=== PATIENT | female | born 1980 | race Caucasian/White ===

== ENCOUNTER → 2021-04-01 10:47 | Outpatient (BNVA) | payer MEDICAID, OTHER, SELFPAY | PROVIDERS: PCP Family Medicine; Visit Provider Surgery | DX: Z20.822 Contact with and (suspected) exposure to COVID-19 (principal); Z11.52 Encounter for screening for COVID-19 | CPT/HCPCS: 87635 ==

== ENCOUNTER 2021-04-07 07:55 | Day surgery (SDC) | payer MEDICAID, SELFPAY ==
[2021-04-04 12:36] VITALS: BMI 36.6
[2021-04-07] VITALS (7 sets, daily range): BP systolic 138–159; BP diastolic 80–107; PULSE 72–107; RESP 16–19; TEMP 36.2–36.4; O2SAT 96–100
--- NOTE | 2021-04-07 08:05 | W.PM.OPSUD ---
Surgery/Procedure H&P Update DATE OF PROCEDURE: April 07, 2021 DATE H&P PERFORMED: 04/01/21 H&P UPDATE INFORMATION: I have reviewed H&P completed within last 30 days, I have examined patient prior to procedure and No changes to prior documentation PLANNED PROCEDURE: Operation Date: 04/07/21 09:30 Proposed Procedures p Laparoscopic Cholecystectomy 47935 K80.20(Not Applicable) - Vitaliy Umana MD
[2021-04-07] MEDS: sodium chloride 0.9% 1,000 ML 30 ML IV (08:30)
--- NOTE | 2021-04-07 08:59 | P.ANESASSM_ITS ---
Pre-Anesthetic Assessment Pre-Anesthetic Assessment: Height/Weight: Height 1.57 m Weight 90.718 kg Temp Pulse Resp BP Pulse Ox 97.2 F L 86 18 159/107 98 04/07/21 08:25 04/07/21 08:25 04/07/21 08:25 04/07/21 08:25 04/07/21 08:25 Preop Diagnosis: Cholelithiasis Proposed Procedure: Operation Date: 04/07/21 09:30 Proposed Procedures p Laparoscopic Cholecystectomy 69505 K80.20(Not Applicable) - Vitaliy Umana MD Was Beta Georgette taken within 24 hours: N/A Was Clonidine taken within 24 hours: N/A Last intake: Intake Last Liquid Date 04/06/21 Last Liquid Time 21:00 Last Solid Date 04/06/21 Last Solid Time 21:00 Social: Social History: No alcohol and No tobacco Exam: Pre-Anes Outpt Exam: alert, oriented x 3, clear to auscultation bilate rally and regular rate & rhythm Airway: Submandibular: WNL Cervical ROM: WNL MP: 2 Dentition: Full History/ROS: No significant history except as noted and No significant complaints Pulmonary: Pulmonary: None reported CV/HEM: CV/HEM: None reported : : None reported Hepatic: Hepatic: None reported GI: GI: GERD Comments: currently nauseated Metabolic: Metabolic: Thyroid Musc/skel: Musc/skel: None reported Neuropsych: Neuropsych: Anxiety and Depression Anesthetic Plan: ASA status: 3 Anesthesia: Anesthesia Evaluation and General PFSH Anesthesia PFSH: Medical History (Updated 04/01/21 @ 10:35 by Vitaliy Umana MD) Depression Hypothyroidism Surgical History (Updated 04/01/21 @ 10:34 by Vitaliy Umana MD) History of History of ear surgery History of ovarian cystectomy Social History Smoking and tobacco status: never smoked Female Reproductive History: Date of last menstrual period: 04/28/21 Data Anesthesia Cardiac Studies: No Data to Display
[2021-04-07 09:04] LABS: OR HCG Qualitative Urine Negative (Negative)
--- NOTE | 2021-04-07 10:18 | SUR.PHASEI ---
PT AWAKE ALERT TAKING OCC ICE CHIPS ABD SOFT WITH 4 SITES D/I PT ON RA TRIAL.
[2021-04-07] MEDS: HYDROcodone-acetaminophen 5-325 mg Tablet 1 TAB PO (11:34)
--- NOTE | 2021-04-07 14:02 | P.OP_ITS ---
Operative Report Date of procedure: April 07, 2021 Pre-op Diagnosis: Cholelithiasis Post-op diagnosis: same Procedure Done: Laparoscopic cholecystectomy Specimens removed/disposition: Gallbladder Surgeon: Vitaliy Umana Anesthesia: General Condition: stable Disposition: PACU Procedure: The patient was taken to the operating room and was intubated under general anesthesia. After the antibiotic had been administered, the abdomen was prepped and draped in a sterile manner. Using a #15 blade, a 1 centimeter infraumbilical curvilinear incision was made and using an open Glen technique the peritoneal cavity was entered. A 10 millimeter port was placed and 15 millimeters of pneumoperitoneum was created. A 10 millimeter, 30 degrees scope was then introduced. Three 5 millimeter ports were placed in the epigastric, midclavicular and the anterior axillary line two fingerbreadths below the costal margin on the right side under the direct visualization. Ratcheted forceps were introduced into the lateral most port and was used to retract the fundus of the gallbladder cephalad and using forceps the infundibulum of the gallbladder was retracted laterally. Using L-hook cautery the peritoneum overlying the Calot's triangle was opened medially and laterally until the cystic duct and the anterior and posterior branch of the cystic artery were skeletonized. Dissection was carried along the body of the gallbladder and after ensuring c ritical view of safety, 4 clips applied on the cystic duct and 3 clips applied on the cystic artery and cut leaving, 3 clips on the remaining portion of the duct and 2 clips on the remaining portion of the anterior and posterior branch of the cystic artery. The rest of the gallbladder was dissected off the liver using L-hook cautery. There was no bleeding or bile leakage noted from the gallbladder fossa and the clips appeared to be in place. An EndoCatch bag was introduced to remove the gallbladder. All the ports were removed under direct visualization and there was no bleeding noted from the port sites. The fascia of the umbilicus was closed using [id number] 0 Vicryl sutures and the subcutaneous tissue was approximated using 3-0 Vicryl sutures. The skin at all four ports were closed using 4-0 Monocryl and Dermabond. A total of 10 millimeters of 0.5% Marcaine was infiltrated around the port sites. The patient was stable throughout the procedure, extubated and transferred to recovery room.
--- NOTE | 2021-04-07 14:30 | ANE.PACU2 ---
Inpatient post-anesthesia follow up: Airway intact: Yes Vital signs: Temperature 97.5 F Pulse Rate 78 Respiratory Rate 18 Blood Pressure 144/86 Pulse Oximetry 98 Oxygen Delivery Me thod Room Air Oxygen Flow Rate 6 Fraction of Inspir ed Oxygen Hydration adequate: Yes Nausea and vomiting: No Pain level: 2 Mental status: Baseline
== END 2021-04-07 11:56 | disposition home or self-care (01) ==
PROVIDERS: Anesthesiology; PCP Family Medicine; Visit Provider Surgery
PROC: 0FT44ZZ Resection of Gallbladder, Percutaneous Endoscopic Approach (ICD-10-PCS; CPT 47562; principal; 2021-04-07 09:30)
DX: K80.10 Calculus of gallbladder with chronic cholecystitis without obstruction (principal); F32.9 Major depressive disorder, single episode, unspecified; E03.9 Hypothyroidism, unspecified
CPT/HCPCS: 47562; 81025; 84703; 88304; J0330; J0690; J1100; J1200; J1885; J2250; J2405; J2704; J2710; J3010; J3490; J7030

== ENCOUNTER → 2021-04-28 13:13 | Outpatient (BNVA) | payer MEDICAID, SELFPAY | PROVIDERS: PCP Family Medicine; Visit Provider Podiatrist Foot & Ankle Surgery | DX: M72.2 Plantar fascial fibromatosis (principal) | CPT/HCPCS: 73630 ==

== ENCOUNTER → 2022-02-09 10:07 | Outpatient (BNVA) | payer MEDICAID, SELFPAY | PROVIDERS: PCP Family Medicine; Visit Provider Podiatrist Foot & Ankle Surgery | DX: M72.2 Plantar fascial fibromatosis (principal) | CPT/HCPCS: 73630 ==

== ENCOUNTER 2022-02-18 12:00 | Outpatient (CLI) | payer MEDICAID, SELFPAY | END 2022-02-18 12:01 | disposition home or self-care (01) | LOC: SLEEP 02-19 08:57 | PROVIDERS: PCP Family Medicine; Visit Provider Otolaryngology | DX: G47.33 Obstructive sleep apnea (adult) (pediatric) (principal); J34.3 Hypertrophy of nasal turbinates | CPT/HCPCS: G0399 ==

== ENCOUNTER → 2022-08-31 13:18 | Outpatient (BNVA) | payer MEDICAID, SELFPAY | PROVIDERS: PCP Family Medicine | DX: R30.0 Dysuria (principal) | CPT/HCPCS: 81000 ==

== ENCOUNTER 2022-09-29 15:02 | Outpatient (CLI) | payer MEDICAID, SELFPAY ==
--- NOTE | 2022-09-29 15:56 | US_ITS ---
WS: [id number] US transvaginal [id number] HISTORY: PELVIC PAIN COMPARISON: 09/08/2022 Limited evaluation based upon the patient's body habitus. Uterus: 8.2 cm x 5.4 cm x 4.3 cm. Anteverted uterus. The entire uterus is not well visualized due to body habitus. Coarsened echotextur e throughout the visualized myometrium. Endometrium: 1.0 cm. Poorly visualized secondary to patient's body habitus. Neither ovary is identified. No adnexal mass. No free fluid in the cul-de-sac. US/US transvaginal [id number] IMPRESSION: 1. Limited by patient's body habitus. 2. Neither ovary identified. 3. Poorly visualized uterus and endometrium.
== END 2022-09-29 15:03 | disposition home or self-care (01) ==
LOC: RAD 15:07
PROVIDERS: PCP Family Medicine; Visit Provider Family Medicine
DX: R10.2 Pelvic and perineal pain (principal)
CPT/HCPCS: 76830

== ENCOUNTER 2022-12-10 05:56 | Day surgery (SDC) | payer MEDICAID, SELFPAY ==
[2022-12-09 08:12] VITALS: BMI 38.4
--- NOTE | 2022-12-09 22:22 | P.HP_ITS ---
Same Day Surgery H&P Indication for Procedure/HPI DATE OF PROCEDURE: December 09, 2022 CHIEF COMPLAINT/INDICATIONFOR SURGICAL PROCEDURE: abnormal uterine bleeding PREOP DIAGNOSIS: abnormal uterine bleeding PLANNED PROCEDURE: Operation Date: 12/10/22 07:30 Proposed Procedures p Hysteroscopy Hysteroscopy w/ Endometrial Sampling(Not Applicable) - Winston Ashby am, MD s Hysteroscopy, endometrial sampling ,Possibe endometrial polypectomy with Myosure:[id number],N93.9(Not Applicable) - Winston Tamayo MD 42 y.o. SA6 h/o BTL Periods very heavy, with clots + bleeding with intercourse x many months PMHx: SANDRO PSHx: Ovarian cystectomy Cholecystectomy, April 2021 Meds: amitriptyline Levothyroxine sertraline NKDA Medications/Allergies* Home Medications Medication Instructions Recorded Confirmed Type sertraline 100 mg tablet 100 mg PO DAILY 03/27/21 12/09/22 History levothyroxine 25 mcg tablet 75 mcg PO DAILY 05/18/22 12/09/22 History (Synthroid) amitriptyline 10 mg tablet 10 mg PO DAILY PRN sleep 08/31/22 12/09/22 History lisinopril 20 mg tablet 20 mg PO DAILY 12/09/22 12/09/22 History Allergies/Adverse Reactions Allergy/AdvReac Type Severity Reaction Status Date / Time No Known Allergies Allergy Verified 11/11/22 14:42 Pertinent History/Comorbid Conditions* Medical History (Updated 09/27/22 @ 03:21 by Winston Tamayo MD) Allergic rhinitis due to allergen Depression Hypothyroidism Surgical History (Updated 01/06/22 @ 15:40 by Siddharth Giron MD) History of History of ear surgery History of ovarian cystectomy History of tonsillectomy and adenoidectomy Hx of myringoplasty Status post laparoscopic cholecystectomy (04/07/21) Social History Smoking and tobacco status: never smoked Pertinent Exam Findings alert, oriented x 3, clear to auscultation bilaterally and regular rate & rhythm Recommendations Surgery/Procedure today Coding Level of Care Code Acute Code for Chg Fwd Diagnoses Time Spent (min) 15
[2022-12-10] VITALS (10 sets, daily range): BP systolic 104–160; BP diastolic 60–100; PULSE 75–94; RESP 17–27; TEMP 36.3–36.6; O2SAT 95–99
[2022-12-10 06:19] LABS: OR HCG Qualitative Urine Negative (Negative)
[2022-12-10] MEDS: sodium chloride 0.9% 1,000 ML 30 ML IV (06:26)
--- NOTE | 2022-12-10 06:44 | ANES.PREANE2 ---
Pre-Anesthetic Assessment Height/Weight: Height 1.57 m Weight 95.254 kg Temp Pulse Resp BP Pulse Ox O2 Del Method 97.6 F 94 17 160/100 99 Room Air 12/10/22 06:12 12/10/22 06:12 12/10/22 06:12 12/10/22 06:12 12/10/22 06:12 12/10/22 06:13 Preop Diagnosis: abnormal uterine bleeding Operation Date: 12/10/22 07:30 Proposed Procedures p Hysteroscopy Hysteroscopy w/ Endometrial Sampling(Not Applicable) - Winston Tamayo MD s Hysteroscopy, endometrial sampling ,Possibe endometrial polypectomy with Myosure:02958,83072,N93.9(Not Applicable) - Winston Tamayo MD Familial anesthetic complications: none Was Beta Georgette taken within 24 hours: N/A Was Clonidine taken within 24 hours: N/A Last intake: Intake Last Liquid Date 12/09/22 Last Liquid Time 22:00 Last Solid Date 12/09/22 Last Solid Time 22:00 Social No alcohol and No tobacco Exam alert, oriented x 3, clear to auscultation bilaterally and regular rate & rhythm Airway Mallampati: Class I Dentition: full Pulmonary Sleep Apnea CV/HEM Hypertension Metabolic Morbid Obesity and Thyroid Disease Anesthetic Plan ASA status: 2 Anesthesia: General Risk of > 500 ml blood loss (7ml/kg in children): No Medications/Allergies Home Medications Medication Instructions Recorded Confirmed Last Taken Type sertraline 100 mg tablet 100 mg PO DAILY 03/27/21 12/10/22 12/09/22 08:00 History levothyroxine 25 mcg tablet 75 mcg PO DAILY 05/18/22 12/10/22 12/08/22 08:00 History (Synthroid) amitriptyline 10 mg tablet 10 mg PO DAILY PRN sleep 08/31/22 12/09/22 Unknown History nystatin 100,000 unit/gram topical 1 applic topical TID #45 grams 09/21/22 12/09/22 Unknown Rx cream triamcinolone acetonide 0.5 % 1 applic topical TID #45 grams 09/21/22 12/09/22 Unknown Rx topical cream lisinopril 20 mg tablet 20 mg PO DAILY 12/09/22 12/10/22 12/08/22 08:00 History Allergies Allergy/AdvReac Type Severity Reaction Status Date / Time No Known Allergies Allergy Verified 12/10/22 06:21 Current Medications Generic Name Dose Route Start Last Admin Trade Name Freq PRN Reason Stop Dose Admin Sodium Chloride 1,000 mls @ 30 mls/hr 12/10/22 06:15 12/10/22 06:26 Sodium Chloride 0.9% IV 12/11/22 06:14 30 mls/hr .Q24H KIRIT Administration PFSH Anesthesia Medical History Allergic rhinitis due to allergen Depression Hypothyroidism Surgical History History of History of ear surgery History of ovarian cystectomy History of tonsillectomy and adenoidectomy Hx of myringoplasty Status post laparoscopic cholecystectomy (04/07/21) Social History Smoking and tobacco status: never smoked Data Anesthesia Cardiac Studies: No Data to Display
[2022-12-10] MEDS: midazolam 1 mg/mL INJ 2 mL 2 MG IVP (06:46)
[2022-12-10] MEDS: scopolamine 1.5 Patch 1 PATCH TRANSDERMA (06:46)
--- NOTE | 2022-12-10 07:13 | W.PM.OPSUD ---
Surgery/Procedure H&P Update DATE OF PROCEDURE: December 10, 2022 DATE H&P PERFORMED: 12/09/22 H&P UPDATE INFORMATION: I have reviewed H&P completed within last 30 days, I have examined patient prior to procedure and No changes to prior documentation PREOP DIAGNOSIS: abnormal uterine bleeding PLANNED PROCEDURE: Operation Date: 12/10/22 07:30 Proposed Procedures p Hysteroscopy Hysteroscopy w/ Endometrial Sampling(Not Applicable) - Winston Tamayo MD s Hysteroscopy, endometrial sampling ,Possibe endometrial polypectomy with Myosure:[id number],80136,N93.9(Not Applicable) - Winston Tamayo MD
--- NOTE | 2022-12-10 09:14 | P.OP_ITS ---
Operative Report Date of procedure: December 10, 2022 Pre-op diagnosis: Preop Diagnosis abnormal uterine bleeding Post-op diagnosis: same Post-op findings: 2 cm benign-appearing endometrial polyp Moderate amount of endometrial tissue Intact endometrial cavity following procedure Procedure done: hysteroscopy Endometrial sampling and polypectomy with Myosure Endometrial curettage Specimens removed/disposition: endometrial curettings Surgeon: Winston Tamayo MD Anesthesia: General Estimated blood loss (mL): 5 Complications: none Condition: stable Disposition: PACU Procedure: Informed consent signed. Patient was taken to the operating room. Anesthesia induced. Patient was placed in dorsolithotomy position, prepped and draped for hysteroscopy. A biva lve speculum was placed in the vagina. The anterior lip of the cervix was grasped with a sharp-toothed tenaculum. The uterus was sounded to 9 cm. The cervix was serially dilated with Hegar dilators. . A hysteroscope was placed into the endometrial cavity. The endometrial cavity was seen to have one 2 cm benign-appearing polyp. There was moderate amount of endometrial tissue. A Myosure device was inserted and used to remove the polyp and endometrial tissue. Tissue was sent to pathology. The Myosure was then removed. The endometrial cavity was intact. A medium-sized sharp curette was used to obtain endometrial curettings, this was also sent to pathology. All instruments were then removed from the cervix and vagina. No bleeding was seen. There was no bleeding from the endometrial cavity or cervix. The patient was then placed supine and awakened and taken to the PACU. Postop condition: stable EBL: 5 cc Sponge and instruments counts were normal x 2 Complications: none
--- NOTE | 2022-12-10 09:30 | ANE.PACU2 ---
Inpatient post-anesthesia follow up: Airway intact: Yes Vital signs: Temperature 97.8 F Pulse Rate 85 Respiratory Rate 17 Blood Pressure 123/79 Pulse Oximetry 96 Oxygen Delivery Me thod Room Air Oxygen Flow Rate 6 Fraction of Inspir ed Oxygen Hydration adequate: Yes Nausea and vomiting: No Pain level: 1 Mental status: Baseline
[2022-12-10] MEDS: phenol oral Spray 177 mL 3 SPRAY MUCOUS MEM (09:43)
== END 2022-12-10 09:52 | disposition home or self-care (01) ==
PROVIDERS: Anesthesiology; PCP Family Medicine; Visit Provider Obstetrics & Gynecology
PROC: 0UJD8ZZ Inspection of Uterus and Cervix, Via Natural or Artificial Opening Endoscopic (ICD-10-PCS; CPT 58555; principal; 2022-12-10 07:30)
PROC: 0UDB8ZZ Extraction of Endometrium, Via Natural or Artificial Opening Endoscopic (ICD-10-PCS; CPT 58558; 2022-12-10 07:30)
DX: N84.0 Polyp of corpus uteri (principal); I10 Essential (primary) hypertension; E03.9 Hypothyroidism, unspecified; G47.33 Obstructive sleep apnea (adult) (pediatric); E66.01 Morbid (severe) obesity due to excess calories; Z68.38 Body mass index [BMI] 38.0-38.9, adult; Z79.899 Other long term (current) drug therapy
CPT/HCPCS: 58558; 58563; 81025; 84703; 88305; J1100; J1200; J1885; J2250; J2405; J2704; J2710; J3010; J3490; J7030

== ENCOUNTER → 2023-01-09 18:09 | Outpatient (BNVA) | payer MEDICAID, SELFPAY | PROVIDERS: PCP Family Medicine; Visit Provider Emergency Medicine | DX: J06.9 Acute upper respiratory infection, unspecified (principal) | CPT/HCPCS: 87426 ==

== ENCOUNTER → 2023-03-17 07:13 | Outpatient (BNVA) | payer MEDICAID, SELFPAY | PROVIDERS: PCP Family Medicine; Visit Provider Podiatrist Foot & Ankle Surgery | DX: M72.2 Plantar fascial fibromatosis (principal) | CPT/HCPCS: 20550; J1100; J3301; J3490 ==

== ENCOUNTER 2023-05-18 12:38 | Outpatient (CLI) | payer MEDICAID, SELFPAY ==
--- NOTE | 2023-05-18 12:43 | MR_ITS ---
WS: [id number] MRI HEAD WITH CONTRAST WITH ATTENTION TO THE INTERNAL AUDITORY CANALS TECHNIQUE: Sagittal T1, T2 axial, T2 axial flair, axial susceptibility weighted imaging, axial diffus ion weighted images, and coronal T2 images were obtained. Pre and post T1 axial and post T1 coronal i mages. ADC and FSPGR images. Post gadolinium images with attention to the internal auditory canals. A xial fiesta imaging. CLINICAL INFORMATION: MIX CONDCT/SNRL HEAR LOSS/OTALGIA L EAR COMPARISON: MRI 2010 FINDINGS: No evidence of restricted diffusion to suggest acute ischemia. Ventricular system and basal cisterns are patent. No suspicious intracranial signal abnormalities. Normal posterior fossa. Normal vascular flow voids at the skull base. No extra-axial fluid collections. No evidence of mass or mass effect. P aranasal sinuses are well aerated. Mastoid air cells are well aerated. Normal posterior nasopharynx. No hemosiderin on susceptibly weighted images. Normal optic chiasm and pituitary infundibulum. Tempor al lobes and hippocampal formations are normal in appearance. Proximal 7th and 8th cranial nerves are normal in appearance. No evidence of enhancing IAC or CP angle mass. Normal trigeminal nerve entry z ones. IMPRESSION: 1. No evidence of restricted diffusion to suggest acute ischemia. 2. No suspicious intracranial signal abnormalities. 3. Proximal 7th and 8th cranial nerves are normal in appearance. Normal trigeminal nerve root entry zones. 4. No evidence of enhancing IAC or CP angle mass. 5. Paranasal sinuses and mastoid air cells are well aerated. 6. No other suspicious findings.
--- NOTE | 2023-05-18 12:43 | CT_ITS ---
WS: [id number] CT TEMPORAL BONES TECHNIQUE: Noncontrast CT of the temporal bones with coronal and sagittal reformatted images. CLINICAL INFORMATION: MIXED CNDCT/SNLRL HEARING LOSS/OTALGIA COMPARISON: CT temporal 2005. MRI IACs 2009 DLP: 294.[address] scans at [facility] use at least one of these dose optimization techniques: automated e xposure control; mA and/or kV adjustment per patient size (includes targeted exams where dose is matc hed to clinical indication); or iterative reconstruction. FINDINGS: Mastoid air cells are well aerated bilaterally. Visualized paranasal sinuses are well aerat ed. Normal posterior nasopharynx. Mild mucosal thickening in the ethmoid air cells. RIGHT: Mastoid air cells are well aerated. Normal external auditory canal. Ossicles are normal in appearance . Middle ear is well aerated. Normal tegmen tympani. Semicircular canals and cochlea are normal in ap pearance. Prussak's space is normal. Normal inner ear structures. Normal vestibular aqueduct. Facial nerve recess is normal. LEFT: Mastoid air cells are well aerated. Normal external auditory canal. Ossicles are normal in appearance . Middle ear is well aerated. Normal tegmen tympani. Semicircular canals and cochlea are normal in ap pearance. Prussak's space is normal. Normal inner ear structures. Normal vestibular aqueduct. Facial nerve recess is normal. IMPRESSION: 1. Mastoid air cells and paranasal sinuses are well aerated. Normal posterior nasopharynx. 2. Normal ossicles bilaterally. 3. Middle ears are well aerated bilaterally. Normal inner ear structures. 4. No suspicious findings.
[2023-05-18] MEDS: gadobenate dimeglumine 20 mL vial IV (14:41)
== END 2023-05-18 12:39 | disposition home or self-care (01) ==
LOC: RAD 12:39
PROVIDERS: PCP Family Medicine; Visit Provider Specialist
DX: H90.72 Mixed conductive and sensorineural hearing loss, unilateral, left ear, with unrestricted hearing on the contralateral side (principal)
CPT/HCPCS: 70480; 70553; A9577

== ENCOUNTER 2023-05-25 08:32 | Outpatient (CLI) | payer MEDICAID, SELFPAY ==
--- NOTE | 2023-05-25 08:40 | MR_ITS ---
WS: [id number] MRA ANGIOGRAPHY [place] HISTORY: MX CNDCT/SNRL HEAR LOSS/OTALGIA,L EAR COMPARISON: None available. TECHNIQUE: 3-D MR angiography is performed of the [place]. All images are reviewed including source images. Distal vertebral and basilar arteries are intact with no significant stenosis or plaque. Dominant RIG HT vertebral artery. Very small hypoplastic distal LEFT vertebral artery. Posterior cerebral arteries are normal course and caliber. Posterior communicating arteries are both patent. Intracranial portion of the internal carotid arteries are normal course and caliber. No significant a therosclerosis, stenosis or aneurysm identified. Middle and anterior cerebral arteries are both paten t with no significant disease. Anterior communicating artery is also normal. Hypoplastic but patent L EFT A1 segment. IMPRESSION: Normal MRA [place]. No aneurysms or occlusions.
--- NOTE | 2023-05-25 08:40 | MR_ITS ---
WS: [id number] MR VENOGRAPHY HEAD 3-D noncontrast imaging performed through the cerebral veins. All imaging is reviewed. HISTORY: HEARING LOSS L EAR/OTALGIA,L EAR COMPARISON: MRI 05/18/2023 Excellent demonstration of the dural venous sinuses and cerebral veins. Very small RIGHT transverse and sigmoid sinus and jugular vein. This is probably a normal variant. Dominant LEFT transverse sinus and sigmoid sinus. These findings were also noted on the prior MRI. The LEFT jugular foramen is very large on the temporal bone CT confirming this is probably a normal developmental variation of the du ral venous sinuses. No thrombus identified. There is a small flow void near the proximal sigmoid sinu s. This does not appear to be a thrombus. Superior sagittal sinus, straight sinus and transverse sinu ses are all patent with no significant thrombus. IMPRESSION: 1. There is a small flow void in the proximal LEFT sigmoid sinus which I believe is probably flow ar tifact and not a thrombus. 2. 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 This corresponds with a very larg e LEFT jugular foramen. Small caliber and nearly obliterated RIGHT transverse sinus and sigmoid sinus .
== END 2023-05-25 08:33 | disposition home or self-care (01) ==
LOC: RAD 08:33
PROVIDERS: PCP Family Medicine; Visit Provider Specialist
DX: H90.42 Sensorineural hearing loss, unilateral, left ear, with unrestricted hearing on the contralateral side (principal); H92.02 Otalgia, left ear; R93.0 Abnormal findings on diagnostic imaging of skull and head, not elsewhere classified
CPT/HCPCS: 70544

== ENCOUNTER → 2023-08-26 16:13 | Outpatient (BNVA) | payer MEDICAID, SELFPAY | PROVIDERS: PCP Family Medicine; Visit Provider Nurse Practitioner Women's Health | DX: B37.9 Candidiasis, unspecified (principal); B37.31 Acute candidiasis of vulva and vagina | CPT/HCPCS: 81000; 81003; 87086 ==

== ENCOUNTER → 2023-09-08 10:15 | Outpatient (BNVA) | payer MEDICAID, SELFPAY | PROVIDERS: PCP Family Medicine; Visit Provider Obstetrics & Gynecology | DX: N92.6 Irregular menstruation, unspecified (principal) | CPT/HCPCS: 76830 ==

== ENCOUNTER 2023-09-23 09:19 | Outpatient (CLI) | payer MEDICAID, SELFPAY ==
[2023-09-23 10:09] LABS: Erythrocyte Sedimentation Rate 35 mm/hr (0-15)
[2023-09-24 11:55] LABS: CENTROMERE B ANTIBODY <1.0 NEG AI (<1.0 NEG); JO-1 ANTIBODY <1.0 NEG AI (<1.0 NEG); RNP ANTIBODY <1.0 NEG AI (<1.0 NEG); SCL-70 ANTIBODY <1.0 NEG AI (<1.0 NEG); SJOGREN'S ANTIBODY (SS-A) <1.0 NEG AI (<1.0 NEG); SM ANTIBODY <1.0 NEG AI (<1.0 NEG); SS-B <1.0 NEG AI (<1.0 NEG)
[2023-09-24 14:26] LABS: COMPLEMENT COMPONENT C3C 177 mg/dL (83-193); COMPLEMENT COMPONENT C4C 42 mg/dL (15-57)
[2023-09-24 14:30] LABS: COMPLEMENT, TOTAL (CH50) >60 U/mL (31-60)
[2023-09-24 16:10] LABS: ANA SCREEN, IFA NEGATIVE (NEGATIVE)
[2023-09-28 11:59] LABS: THYROID PEROXIDASE ANTIBODIES 1 IU/mL (<9)
[2023-10-01 13:35] LABS: DNA AB (DS) CRITHIDIA,IFA NEGATIVE (NEGATIVE)
== END 2023-09-23 09:20 | disposition home or self-care (01) ==
LOC: LAB 09:21
PROVIDERS: PCP Family Medicine; Visit Provider Specialist
DX: M79.7 Fibromyalgia (principal); G43.711 Chronic migraine without aura, intractable, with status migrainosus
CPT/HCPCS: 36415; 85651; 86160; 86162; 86235; 86255; 86376; 86431

== ENCOUNTER → 2023-11-10 10:58 | Outpatient (BNVA) | payer MEDICAID, SELFPAY | PROVIDERS: PCP Family Medicine; Visit Provider Specialist | DX: R30.0 Dysuria (principal) | CPT/HCPCS: 81001 ==

== ENCOUNTER 2024-06-23 09:09 | Outpatient (CLI) | payer MEDICAID, SELFPAY ==
--- NOTE | 2024-06-23 09:14 | US_ITS ---
WS: [id number] RIGHT UPPER QUADRANT ULTRASOUND HISTORY: ABNORMAL MENSES, pain. COMPARISON: None available. Liver: 16.4 cm in length. Normal size liver and echogenicity. No bile duct dilatation or mass. Portal Vein: Normal hepatopetal flow with monophasic waveform. Gallbladder: Prior cholecystectomy. CBD: 0.5 cm Pancreas: Normal size and echogenicity. Right kidney: 9.3 cm in length. Normal size and echogenicity. No hydronephrosis or mass. Aorta and IVC: Unremarkable abdominal aorta and IVC. No ascites. US/US abdomen limited [id number] IMPRESSION: 1. Prior cholecystectomy. 2. RIGHT upper quadrant ultrasound is normal otherwise.
--- NOTE | 2024-06-23 09:14 | USR_ITS ---
PROCEDURE INFORMATION: Exam: US Pelvis, Transvaginal, Non-Obstetric Exam date and time: 06/23/2024 9:41 AM Age: 44 years old Clinical indication: Menstruation abnormalities; Irregular menstruation; Additional info: Abnormal menses TECHNIQUE: Imaging protocol: Real-time transvaginal pelvic (non-obstetric) ultrasound with image documentation. Transvaginal imaging was used for better evaluation of the endometrium, adnexa, and/or cervix. COMPARISON: US transvaginal [id number] 09/08/2023 10:22 AM FINDINGS: Uterus: The uterus is retroverted. Limited visualization of the uterus due to positioning. The uterus measures 7.5 x 5.0 x 5.0 cm. Stable linear area of decreased echogenicity in the lower anterior myometrium suggestive of a Caesarean section scar. Heterogenous fluid in the lower endometrial canal and cervical canal suspicious for hemorrhage. 7 x 6 x 6 mm polypoid focus in the cervical canal, possible cervical polyp cannot be ruled out. Right ovary/adnexa: The right ovary measures 1.9 x 2.6 x 1.8 cm. Multiple subcentimeter follicles in the right ovary. Left ovary/adnexa: The left ovary is unremarkable. The left ovary measures 1.3 x 1.8 x 1.8 cm. New lineNormal arterial and venous waveforms on Doppler imaging in the left ovary. Urinary bladder: Urinary bladder is limited. Vasculature: Normal arterial and venous waveforms on Doppler imaging in the right ovary. Intraperitoneal space: No free fluid in the pelvis. US/US transvaginal [id number] IMPRESSION: 1. 7 x 6 x 6 mm polypoid focus in the cervical canal, possible cervical polyp cannot be ruled out. Recommend clinical correlation. Consider further evaluation with colposcopy. 2. Heterogenous fluid in the lower endometrial canal and cervical canal suspicious for hemorrhage. 3. The uterus is retroverted. Limited visualization of the uterus due to positioning. 4. Stable linear area of decreased echogenicity in the lower anterior myometrium suggestive of a Caesarean section scar. 5. Incidental/nonacute findings are listed in the report.
--- NOTE | 2024-06-23 09:14 | CTR_ITS ---
PROCEDURE INFORMATION: Exam: CT Chest With Contrast; Diagnostic Exam date and time: 06/23/2024 10:58 AM Age: 44 years old Clinical indication: Cough; Prior surgery; Surgery date: 6+ months; Surgery type: Gb TECHNIQUE: Imaging protocol: Diagnostic computed tomography of the chest with contrast. Sagittal and coronal reformatted images were also reviewed. Radiation optimization: All CT scans at this facility use at least one of these dose optimization techniques: automated exposure control; mA and/or kV adjustment per patient size (includes targeted exams where dose is matched to clinical indication); or iterative reconstruction. Contrast material: OMNI 350; Contrast volume: 100 ml; Contrast route: INTRAVENOUS (IV); COMPARISON: No relevant prior studies available. RADIATION DOSE METRICS: Total DLP (mGy-cm): 543.1 FINDINGS: Trachea: Tracheobronchial structures are patent. Lungs: Lungs are clear bilaterally. No pulmonary parenchymal nodules or masses. Pleural spaces: No pneumothorax. No pleural effusion. Heart: No cardiomegaly. No pericardial effusion. Esophagus: The esophagus is unremarkable. Mediastinal space: No mediastinal hematoma. No pneumomediastinum. Lymph nodes: No lymphadenopathy. Vasculature: No evidence for aortic aneurysm or aortic dissection. Pulmonary arteries are unremarkable. Pulmonary veins are unremarkable. Liver: The visualized liver is unremarkable. Gallbladder and biliary ducts: Patient has had a previous cholecystectomy. No dilatation of the visualized bile ducts. Pancreas: The pancreas is unremarkable. No pancreatic ductal dilatation. Spleen: The spleen is unremarkable. Adrenal glands: The right and left adrenal glands are unremarkable. Kidneys: The visualized right and left kidneys are unremarkable. Bones/joints: No acute fracture. Soft tissues: The extrathoracic soft tissues are unremarkable. CT/CT chest w con* [id number] IMPRESSION: 1. No acute cardiopulmonary process. 2. Incidental/nonacute findings are listed in the report.
[2024-06-23] MEDS: iohexol 350 mg/mL 500 mL Btl (per mL) IV (11:03)
== END 2024-06-23 09:10 | disposition home or self-care (01) ==
PROVIDERS: PCP Family Medicine; Visit Provider Internal Medicine
DX: N92.5 Other specified irregular menstruation (principal); J20.9 Acute bronchitis, unspecified; R05.9 Cough, unspecified; R93.89 Abnormal findings on diagnostic imaging of other specified body structures; N85.4 Malposition of uterus; Z90.49 Acquired absence of other specified parts of digestive tract; Z98.890 Other specified postprocedural states
CPT/HCPCS: 71260; 76705; 76830